=== PATIENT | male | born 1985 | race Caucasian/White ===

== ENCOUNTER → 2021-04-04 14:44 | Outpatient (CLI) | payer BC, SELFPAY ==
--- NOTE | ~2021-04-04 | US_ITS ---
EXAMINATION: US soft tissue head and neck EXAM DATE: 04/04/2021 15:10 INDICATION: Lymphadenopathy TECHNIQUE: Multiple grayscale and Doppler images of the symptomatic left submandibular region were o btained (by a technologist who performed the scan) and subsequently reviewed. I then was present for additional scanning of the submandibular regions bilaterally. There are no prior studies for comparis on. FINDINGS: The left submandibular gland is slightly larger and lobular in shape than the contralateral side, wit h mildly increased vascularity. No focal mass is identified. Probably sialoadenitis. Recommend clinic al follow-up and if symptoms do not improve, CT scan neck without contrast could be obtained to evalu ate for possibility of sialolithiasis. No pathologically enlarged left internal jugular chain lymph nodes were identified. IMPRESSION: Mildly enlarged and hypervascular left submandibular gland, probably sialoadenitis. Clini jacquelin correlation, follow up as above. Reviewed, dictated and finalized at location B. IN MARKER IMPRESSION: Mildly enlarged and hypervascular left submandibular gland, probabl y sialoadenitis. Clinical correlation, follow up as above.
== END ==
PROVIDERS: PCP Emergency Medicine; Visit Provider Emergency Medicine
DX: R59.1 Generalized enlarged lymph nodes (principal)
CPT/HCPCS: 76536

== ENCOUNTER 2021-09-29 16:10 | Emergency (ER) | payer BC, SELFPAY ==
[2021-09-29 17:02] VITALS: BP 128/74; PULSE 71; RESP 16; TEMP 37; O2SAT 99
--- NOTE | 2021-09-29 17:03 | ED.WOUNDLAC ---
HPI - Wound/Laceration General Chief Complaint: Wound/Laceration Stated Complaint: Cut Top of Head Source: patient Mode of arrival: ambulatory Limitations: no limitations History of Present Illness HPI narrative: 36-year-old male presents to [facility] with complaints of laceration to the top of his scalp X 90 minutes -- patient reports that he hit the top of his head on his car while getting his child out of his car seat 90 min ago. Patient is unsure of his last tetanus shot. Patient denies loss of conscious, headache, dizziness, blurred vision, nausea or vomiting. Onset (ago): hour(s) (1.5) Location: scalp Place: home Patient tetanus UTD: No Associated symptoms: none Related Data Home Medications Medication Instructions Recorded Confirmed No Home Medications 09/29/21 09/29/21 Allergies Allergy/AdvReac Type Severity Reaction Status Date / Time No Known Allergies Allergy Verified 09/29/21 16:19 Review of Systems Constitutional: Constitutional: Denies chills, Denies fatigue and Denies fever(s) Eyes: Eyes: Denies change in vision and Denies photophobia ENT: Denies dizziness Cardiovascular: Cardiovascular: Denies chest pain Gastrointestinal: Gastrointestinal: Denies abdominal pain, Denies nausea and Denies vomiting Integumentary/Breasts: Comments: Laceration to top of scalp Neurologic: Denies vertigo, Denies dizziness, Denies syncope, Denies numbness and Denies weakness PMFSH Social History Social History (Updated 09/29/21 @ 17:08 by Martha Paiz APRN) Smoking status: Never smoker Comments At time of signature, I agree with nursing past medical, surgical, social and family history. There is no relevant family history pertinent to the presenting complaint. Exam Const: General: healthy appearing Nutritional Appearance: well nourished Orientation/consciousness: patient oriented x3 Limitations: no limitations Eyes: Conjunctivae: conjunctivae normal Pupils: Equal, round and reactive pupils present EOM: EOMs intact bilaterally Direct Ophthalmoscopy: no photophobia Neck: Neck: normal visual inspection Resp: Effort & Inspection: normal respiratory effort and not labored Auscultation: clear to auscultation bilaterally and no crackles Cardio: Rate: regular rate Rhythm: regular rhythm Heart sounds: no murmurs Skin: General skin exam: normal color Rashes: no rashes Other: 2.5cm superficial laceration noted to top of scalp -- scant amount of bleeding noted Neuro: General: patient oriented x3, moves all extremities, no meningeal signs and no focal motor deficits Cranial nerves: Yes Nystagmus not present Speech: normal speech Gait exam (Neuro): Normal gait present Extrem: General: normal to inspection Psych: Mental Status: mental status grossly normal Affect: normal affect Attitude: cooperative Course Course Level of Care: Express Care Visit Procedures Laceration Laceration 1: Date: 09/29/21 Time: 17:18 Site: scalp Size (cm): 2.5 Description: linear and clean Pre-repair: irrigated ====== Skin Level ====== Skin layer closed with: naomy (2) ====== Subcutaneous Layer ====== ====== Muscle Layer ====== ====== Tendon Layer ====== MDM - Wound/Laceration MDM Narrative Medical decision making narrative: Wound care discussed with patient. Patient agrees to monitor closely for signs and symptoms of infection. instructed patient to return here or follow-up with primary care provider in 5 to 7 days to have naomy X 2 removed Differential Diagnosis Differential diagnosis: Likely abscess, abrasion and avulsion of skin Critical Care Time Critical Care Time Critical Care Time: No Discharge Plan Discharge Clinical Impression: Laceration Patient Disposition: Home, Self-Care Condition: Improved Instructions: Laceration (ED), Staple Care (ED) Additional Instructions: Follow-up with primary care pr
[2021-09-29] MEDS: TETANUS,DIPHTHERIA,AC PERTUSSIS ADULT (0.5 ML) BOOSTRIX IM (17:14)
== END 2021-09-29 17:25 | disposition home or self-care (01) ==
PROVIDERS: Emergency Provider Nurse Practitioner Family; PCP Emergency Medicine
DX: S01.01XA Laceration without foreign body of scalp, initial encounter (principal); W22.8XXA Striking against or struck by other objects, initial encounter; Z23 Encounter for immunization
CPT/HCPCS: 12001; 90471; 90715; 99212; G0463